=== PATIENT | female | born 1950 | race Caucasian/White ===

== ENCOUNTER 2017-04-14 12:48 | Emergency (ER) | payer MEDICARE, MEDICAID, SELFPAY ==
[2017-04-14 13:27] VITALS: BP 125/51; PULSE 70; RESP 20; TEMP 37.3; O2SAT 95; BMI 37.7
[2017-04-14 13:43] LABS: UTC Influenza A Antigen Negative (Negative); UTC Influenza B Antigen Negative (Negative)
[2017-04-14 13:53] LABS: Apearance,Urine Cloudy (Clear); Bilirubin,Urine Negative (Negative); Blood, Urine Negative (Negative); Color,Urine Yellow (Yellow); Glucose,Urine (UA) Negative (Negative); Ketones,Urine Negative (Negative); PH,Urine 7.5 (5.0-8.5); Protein,Urine Negative (Negative); Specific Gravity, Urine 1.015 (1.005-1.030); UTC Leukocyte Esterase,Urine Negative (Negative); UTC Nitrate,Urine Positive (Negative); Urobilinogen,Urine 0.2 EU/dl (0.2)
--- NOTE | 2017-04-14 13:55 | HMH.EDUTC ---
[facility] – [place] Disposition Clinical Impression: UTI (urinary tract infection) Qualifiers: Urinary tract infection type: site unspecified Hematuria presence: without hematuria Qualified Code(s): N39.0 - Urinary tract infection, site not specified Disposition: Home, Self-Care Condition on Discharge: Good Instructions: Urinary Tract Infection, DI for Urinary Tract Infection (UTI) Additional Instructions: *Increase fluids. Water not Soda or Tea *Start antibiotic immediately and be sure to take as ordered for the FULL length of time although you should start to see improvement over the next 48 hours *Pyridium as needed Remember this medication will turn your urine [place]. This is normal but it will stain what ever it gets on *You should not use Pyridium for more than 48 hours. If so , follow up with your primary physician to review urine culture and ensure that antibiotic is adequate for infection *Be SURE to follow up anytime for new or worsening symptoms. AND in 48 hours for urine culture results AND in 10-14 days to repeat UA to ensure infection is resolved and blood no longer present *Be sure to let your PCP know that we sent urine cultures from the [facility] so they can follow up to ensure that you area the on the correct antibiotic Follow up with family doctor if symptoms persist or worsen Prescriptions: Nitrofurantoin Monohyd/M-Cryst [Macrobid 100 mg Capsule] 100 mg PO Q12H #14 capsule Phenazopyridine HCl [Pyridium 200mg Tablet] 200 mg PO TID #6 tablet Referrals: Bassam Alvarenga MD [Primary Care Provider] - Time of Disposition: 14:16 Medical Decision Making Vital Signs: 04/14/17 13:27 Temperature 99.1 F Temperature Source Temporal Artery Scan Pulse Rate [Right] 70 Respiratory Rate 20 Blood Pressure [Right Arm] 125/51 Blood Pressure Mean [Right Arm] 75 Blood Pressure Source [Right Arm] Automatic Cuff Blood Pressure Position [Right Arm] Sitting 02 Sat by Pulse Oximetry 95 Oxygen Delivery Method Room Air - Lab Data Lab Results 04/14/17 13:30: Influenza Type A Ag Negative, Influenza Type B Ag Negative 04/14/17 13:42: Urine Color Yellow, Urine Appearance Cloudy, Urine pH 7.5, Ur Specific [place] 1.015, Urine Protein Negative, Urine Glucose (UA) Negative, Urine Ketones Negative, Urine Blood Negative, Urine Nitrate Positive A, Urine Bilirubin Negative, Urine Urobilinogen 0.2, Ur Leukocyte Esterase Negative - Pascual Inquiry Pt receiving controlled substance: No Pascual was queried for this patient: No [facility] [place] HPI - General Stated complaint: headache cough achey Mode of Arrival: Ambulatory Source of Information: Patient Limitations: No Limitations Description of Symptoms (Recalled from Triage Doc. by RN): COUGH, HEADACHE, BACK PAIN HEENT Symptoms (Recalled from RN notes): Yes Resp Symptoms (Recalled from RN notes): No Skin Symptoms (Recalled from RN notes): No MS Symptoms (Recalled from RN notes): No Functional Status (Recalled from RN notes): N - History of Present Illness Provider Complaint: Patient state that she has been coughing feeling achy all over, pain and burning with urination and lower back at times State that she thinks she may have a UTI state that urine has strong odor to it. States that she recieves blood products alot and was worried that she may have been exposed to the flu also - Related Data Home Medications Medication Instructions Recorded Confirmed Atenolol [Atenolol 25mg Tab] 25 mg PO DAILY 04/14/17 04/14/17 Gabapentin [Gabapentin 400mg Cap] 400 mg PO TID 04/14/17 04/14/17 Omeprazole [Omeprazole 20mg 20 mg PO DAILY 04/14/17 04/14/17 Capsule] Previous Rx's Medication Instructions Recorded Nitrofurantoin Monohyd/M-Cryst 100 mg PO Q12H #14 cap 04/14/17 [Macrobid 100 mg Capsule] Phenazopyridine HCl [Pyridium 200 mg PO TID #6 tab 04/14/17 200mg Tablet] Allergies Allergy/AdvReac Type Severity Reaction Status Date / Time maltose [From [employer] [facility]] AdvReac Mild NA-AZALIA
--- NOTE | 2017-04-14 14:02 | ED_ITS ---
[facility] – [place] Disposition Clinical Impression: UTI (urinary tract infection) Qualifiers: Urinary tract infection type: site unspecified Hematuria presence: without hematuria Qualified Code(s): N39.0 - Urinary tract infection, site not specified Disposition: Home, Self-Care Condition on Discharge: Good Instructions: Urinary Tract Infection, DI for Urinary Tract Infection (UTI) Additional Instructions: *Increase fluids. Water not Soda or Tea *Start antibiotic immediately and be sure to take as ordered for the FULL length of time although you should start to see improvement over the next 48 hours *Pyridium as needed Remember this medication will turn your urine [place]. This is normal but it will stain what ever it gets on *You should not use Pyridium for more than 48 hours. If so , follow up with your primary physician to review urine culture and ensure that antibiotic is adequate for infection *Be SURE to follow up anytime for new or worsening symptoms. AND in 48 hours for urine culture results AND in 10-14 days to repeat UA to ensure infection is resolved and blood no longer present *Be sure to let your PCP know that we sent urine cultures from the [facility] so they can follow up to ensure that you area the on the correct antibiotic Follow up with family doctor if symptoms persist or worsen Prescriptions: Nitrofurantoin Monohyd/M-Cryst [Macrobid 100 mg Capsule] 100 mg PO Q12H #14 capsule Phenazopyridine HCl [Pyridium 200mg Tablet] 200 mg PO TID #6 tablet Referrals: Bassam Alvarenga MD [Primary Care Provider] - Time of Disposition: 14:16 Medical Decision Making Vital Signs: 04/14/17 13:27 Temperature 99.1 F Temperature Source Temporal Artery Scan Pulse Rate [Right] 70 Respiratory Rate 20 Blood Pressure [Right Arm] 125/51 Blood Pressure Mean [Right Arm] 75 Blood Pressure Source [Right Arm] Automatic Cuff Blood Pressure Position [Right Arm] Sitting 02 Sat by Pulse Oximetry 95 Oxygen Delivery Method Room Air - Lab Data Lab Results 04/14/17 13:30: Influenza Type A Ag Negative, Influenza Type B Ag Negative 04/14/17 13:42: Urine Color Yellow, Urine Appearance Cloudy, Urine pH 7.5, Ur Specific [place] 1.015, Urine Protein Negative, Urine Glucose (UA) Negative, Urine Ketones Negative, Urine Blood Negative, Urine Nitrate Positive A, Urine Bilirubin Negative, Urine Urobilinogen 0.2, Ur Leukocyte Esterase Negative - Pascual Inquiry Pt receiving controlled substance: No Pascual was queried for this patient: No [facility] [place] HPI - General Stated complaint: headache cough achey Mode of Arrival: Ambulatory Source of Information: Patient Limitations: No Limitations Description of Symptoms (Recalled from Triage Doc. by RN): COUGH, HEADACHE, BACK PAIN HEENT Symptoms (Recalled from RN notes): Yes Resp Symptoms (Recalled from RN notes): No Skin Symptoms (Recalled from RN notes): No MS Symptoms (Recalled from RN notes): No Functional Status (Recalled from RN notes): N - History of Present Illness Provider Complaint: Patient state that she has been coughing feeling achy all over, pain and burning with urination and lower back at times State that she thinks she may have a UTI state that urine has strong odor to it. States that she recieves blood products alot and was worried that she may have been exposed to the flu also - Related Data Home Medications Medication Instructions Recorded Confirmed Atenolol [Atenolol 25mg Tab] 25 mg PO DAILY 04/14/17 04/14/17
== END 2017-04-14 14:27 | disposition home or self-care (01) ==
PROVIDERS: Emergency Provider Nurse Practitioner; Family Provider Family Medicine; PCP Family Medicine
DX: N39.0 Urinary tract infection, site not specified (principal); Z79.899 Other long term (current) drug therapy
CPT/HCPCS: 81003; 87804; 99202

== ENCOUNTER 2017-05-01 19:46 | Emergency (ER) | payer MEDICARE, MEDICAID, SELFPAY ==
[2017-05-01 19:56] VITALS: BP 156/84; PULSE 70; RESP 14; TEMP 36.8; O2SAT 96; BMI 38.0
--- NOTE | 2017-05-01 20:19 | HMH.EDEYEP ---
ED Disposition Clinical Impression: Change in vision Disposition: Home, Self-Care Condition on Discharge: Good Instructions: Eye Contusion Referrals: Bassam Alvarenga MD [Primary Care Provider] - - Critical Care Critical Care Time: No Attestation: On 05/01/17, the high probability of a clinically significant, sudden or life threatening deterioration of the following system(s) required my full and direct attention, intervention and personal management. The time I documented below is in addition to time spent performing reported procedures but includes the following listed in this critical care notation. Medical Decision Making - Medical Records Medical records reviewed: Yes: I reviewed the patient's medical records. Vital Signs: 05/01/17 19:56 Temperature 98.2 F Temperature Source Oral Pulse Rate [Right Brachial] 70 Respiratory Rate 14 Blood Pressure [Right Arm] 156/84 Blood Pressure Mean [Right Arm] 108 Blood Pressure Source [Right Arm] Automatic Cuff 02 Sat by Pulse Oximetry 96 Oxygen Delivery Method Room Air - Physician Consults Physician Consulted: corby Reason -: Pt condition - Pascual Inquiry Pt receiving controlled substance: No Eye Problem HPI - General Chief complaint: Eye Problems Stated complaint: F/B IN RIGHT EYE Time Seen by Provider: 05/01/17 20:19 Mode of Arrival: Ambulatory Source of Information: Patient, Medical Record Limitations: No Limitations Description of Symptoms (Recalled from ER Triage Doc. by RN): PT STATES SHE FEELS LIKE THERE IS SOMETHING IN HER RIGHT EYE, STARTED THIS MORNING. SHE HAD AN EYE EXAM YESTERDAY, AND EVERYTHING WAS FINE. PT DENIES ANY TRAUMA, SHE STATES SHE IS SEEING BLACK FLOATERS - History of Present Illness HPI Narrative: pt with nl eye exam and now has no pain or visual loss but has sense of seeing thread - MD chief complaint: vision change Onset (ago): day(s) Onset description: sudden Duration: constant Location: right eye Place: home Severity: moderate - Related Data Home Medications Medication Instructions Recorded Confirmed Atenolol [Atenolol 25mg Tab] 25 mg PO DAILY 04/14/17 05/01/17 Gabapentin [Gabapentin 400mg Cap] 400 mg PO TID 04/14/17 05/01/17 Omeprazole [Omeprazole 20mg 20 mg PO DAILY 04/14/17 05/01/17 Capsule] Allergies Allergy/AdvReac Type Severity Reaction Status Date / Time maltose [From [employer]] AdvReac Mild NA-NAUSEA/V Verified 05/01/17 20:10 OMITING Rho(D) immune globulin AdvReac Mild NA-NAUSEA/V Verified 05/01/17 20:10 [From [employer]] OMITING Sulfa (Sulfonamide AdvReac Mild NA-NAUSEA Verified 05/01/17 20:10 Antibiotics) H History I have reviewed the patient's past medical history: Yes - *Social History Smoking Status: Never smoker Alcohol Intake: never - Psychiatric History Expresses thoughts of harming self/others: None Suicide Plan Description: No Plan ROS Obtained: Yes All systems reviewed & no additional complaints - Constitutional Constitutional: Denies fever(s) - Eyes Eyes: Reports as per HPI, Reports change in vision, Reports floaters - ENT Ears, Nose, Mouth, and Throat: Reports epistaxis - Cardiovascular Cardiovascular: Reports chest pain at rest - Respiratory Respiratory: Yes cough - Musculoskeletal Musculoskeletal: Reports joint pain - Integumentary/Breasts Skin/Breast: Denies rash - Neurologic Neurologic: Denies seizure-like activity Physical Exam - General General appearance: alert, in no apparent distress - Head Head exam: atraumatic - Eye Eye exam: Present: PERRL, EOMI, other (neg stain ) - ENT ENT exam: Present: mucous membranes moist - Neck Neck exam: Present: trachea midline - Respiratory Respiratory exam: Absent: respiratory distress - Cardiovascular Cardiovascular exam: Present: regular rate - Abdominal Exam Abdominal exam: Present: soft - Neurological Exam Neurological exam: Present: henok
--- NOTE | 2017-05-01 20:22 | ED_ITS ---
ED Disposition Clinical Impression: Change in vision Disposition: Home, Self-Care Condition on Discharge: Good Instructions: Eye Contusion Referrals: Bassam Alvarenga MD [Primary Care Provider] - - Critical Care Critical Care Time: No Attestation: On 05/01/17, the high probability of a clinically significant, sudden or life threatening deterioration of the following system(s) required my full and direct attention, intervention and personal management. The time I documented below is in addition to time spent performing reported procedures but includes the following listed in this critical care notation. Medical Decision Making - Medical Records Medical records reviewed: Yes: I reviewed the patient's medical records. Vital Signs: 05/01/17 19:56 Temperature 98.2 F Temperature Source Oral Pulse Rate [Right Brachial] 70 Respiratory Rate 14 Blood Pressure [Right Arm] 156/84 Blood Pressure Mean [Right Arm] 108 Blood Pressure Source [Right Arm] Automatic Cuff 02 Sat by Pulse Oximetry 96 Oxygen Delivery Method Room Air - Physician Consults Physician Consulted: corby Reason -: Pt condition - Pascual Inquiry Pt receiving controlled substance: No Eye Problem HPI - General Chief complaint: Eye Problems Stated complaint: F/B IN RIGHT EYE Time Seen by Provider: 05/01/17 20:19 Mode of Arrival: Ambulatory Source of Information: Patient, Medical Record Limitations: No Limitations Description of Symptoms (Recalled from ER Triage Doc. by RN): PT STATES SHE FEELS LIKE THERE IS SOMETHING IN HER RIGHT EYE, STARTED THIS MORNING. SHE HAD AN EYE EXAM YESTERDAY, AND EVERYTHING WAS FINE. PT DENIES ANY TRAUMA, SHE STATES SHE IS SEEING BLACK FLOATERS - History of Present Illness HPI Narrative: pt with nl eye exam and now has no pain or visual loss but has sense of seeing thread - MD chief complaint: vision change Onset (ago): day(s) Onset description: sudden Duration: constant Location: right eye Place: home Severity: moderate - Related Data Home Medications Medication Instructions Recorded Confirmed Atenolol [Atenolol 25mg Tab] 25 mg PO DAILY 04/14/17 05/01/17 Gabapentin [Gabapentin 400mg Cap] 400 mg PO TID 04/14/17 05/01/17 Omeprazole [Omeprazole 20mg 20 mg PO DAILY 04/14/17 05/01/17 Capsule] Allergies Allergy/AdvReac Type Severity Reaction Status Date / Time maltose [From [employer] [facility]] AdvReac Mild NA-NAUSEA/V Verified 05/01/17 20:10 OMITING Rho(D) immune globulin AdvReac Mild NA-NAUSEA/V Verified 05/01/17 20:10 [From [employer]] OMITING Sulfa (Sulfonamide AdvReac Mild NA-NAUSEA Verified 05/01/17 20:10 Antibiotics) [facility] History I have reviewed the patient's past medical history: Yes - *Social History Smoking Status: Never smoker Alcohol Intake: never - Psychiatric History Expresses thoughts of harming self/others: None Suicide Plan Description: No Plan ROS Obtained: Yes All systems reviewed & no additional complaints - Constitutional Constitutional: Denies fever(s) - Eyes Eyes: Reports as per HPI, Reports change in vision, Reports floaters - ENT Ears, Nose, Mouth, and Throat: Reports epistaxis - Cardiovascular Cardiovascular: Reports chest pain at rest - Respiratory Respiratory: Yes
--- NOTE | 2017-05-01 20:29 | PC.NURSE ---
VISION 20/200 IN RIGHT EYE, 20/50 IN LEFT AND 20/40 IN BOTH
== END 2017-05-01 20:36 | disposition home or self-care (01) ==
PROVIDERS: Emergency Provider Emergency Medicine; Family Provider Family Medicine; PCP Family Medicine
DX: H53.141 Visual discomfort, right eye (principal); Z79.899 Other long term (current) drug therapy; Z88.2 Allergy status to sulfonamides
CPT/HCPCS: 99282

== ENCOUNTER 2017-06-15 12:34 | Emergency (ER) | payer MEDICARE, MEDICAID, SELFPAY ==
[2017-06-15 13:29] VITALS: BP 123/61; PULSE 72; RESP 20; TEMP 37.3; O2SAT 96; BMI 37.7
--- NOTE | 2017-06-15 14:31 | XR_ITS ---
XR knee standing BI Ordering Physician: Marguerite Dorsey Patient Age: 67 years: Female HISTORY: ITS.REASON: becki knee pain TECHNIQUE: Bilateral standing 3 view right and left knee COMPARISON:. 11/21/2014. Right & left knee radiograph === LEFT KNEE 3 VIEWS WEIGHTBEARING . Slight narrowing medial compartment more so than lateral compartment. Minor sharpening & scant early marginal osteophyte formation at the knee. No joint effusion. ========= RIGHT KNEE 3 VIEW WEIGHTBEARING: Borderline/scant narrowing of the medial compartment more so the lateral compartment.. Similar appearance versus 2011 this regard. Also Trace tricompartmental marginal osteophytes. No joint effusion. Scattered small ovoid osseous densities posterior to the joint. Small osseous densities posteriorly may reflect small synovial osteochondroma formation and possibly some hypertrophic features posteriorly which have progressed since previous comparison study 2010. But less likely loose body posteriorly. 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 No prominent findings either knee... No joint effusion. No fracture. Right knee. 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 Less likely loose body. Slight progression these features since 2010
--- NOTE | 2017-06-15 14:31 | HMH.EDUTC ---
[facility] – [place] Disposition Clinical Impression: Maxillary sinusitis, acute Qualifiers: Recurrence: non-recurrent Qualified Code(s): J01.00 - Acute maxillary sinusitis, unspecified Disposition: Home, Self-Care Condition on Discharge: Good Instructions: Sinusitis Additional Instructions: Tylenol or ibuprofen as needed Follow-up with primary care for surgery clearance If symptoms worsen or do not improve return or be seen in the ER Follow-up with Orth regarding knee pain Referrals: Aramis Pelaez MD [Staff Physician] - Medical Decision Making Vital Signs: 06/15/17 13:29 Temperature 99.2 F Temperature Source Temporal Artery Scan Pulse Rate [Brachial] 72 Respiratory Rate 20 Blood Pressure [Right Arm] 123/61 Blood Pressure Mean [Right Arm] 81 Blood Pressure Source [Right Arm] Automatic Cuff Blood Pressure Position [Right Arm] Sitting 02 Sat by Pulse Oximetry 96 Orders (Tests/Meds): ORDERS Category Date Time Status Knee XR bilateral standing [XR knee standing BI] Stat Exams 06/15/17 14:31 Ordered - Pascual Inquiry Pt receiving controlled substance: No [facility] [place] HPI - General Chief complaint: Headache Stated complaint: headache Time Seen by Provider: 06/15/17 14:32 Mode of Arrival: Ambulatory Source of Information: Patient Limitations: No Limitations Description of Symptoms (Recalled from Triage Doc. by RN): H/A, AND BILATERAL KNEE PAIN HEENT Symptoms (Recalled from RN notes): No Resp Symptoms (Recalled from RN notes): No Skin Symptoms (Recalled from RN notes): No MS Symptoms (Recalled from RN notes): Yes Functional Status (Recalled from RN notes): NA - History of Present Illness Provider Complaint: 67-year-old female presents today for multiple complaints. Patient is complaining of a headache with sinus congestion and pressure. Also reports bilateral knee pain that has been going on for years she states sometimes she has trouble walking due to the pain. Patient reports a history of fibromyalgia. Patient also was questioned whether she did have a surgery clearance for surgery tomorrow when her eyes. - Related Data Home Medications Medication Instructions Recorded Confirmed Atenolol [Atenolol 25mg Tab] 25 mg PO DAILY 04/14/17 05/01/17 Gabapentin [Gabapentin 400mg Cap] 400 mg PO TID 04/14/17 05/01/17 Omeprazole [Omeprazole 20mg 20 mg PO DAILY 04/14/17 05/01/17 Capsule] Duloxetine HCl [Cymbalta 30mg 30 mg PO DAILY 06/15/17 06/15/17 capsule] Lisinopril [Zestril 10mg Tab] 10 mg PO DAILY 06/15/17 06/15/17 Allergies Allergy/AdvReac Type Severity Reaction Status Date / Time maltose [From [employer]] AdvReac Mild NA-NAUSEA/V Verified 05/01/17 20:10 OMITING Rho(D) immune globulin AdvReac Mild NA-NAUSEA/V Verified 05/01/17 20:10 [From [employer]] OMITING Sulfa (Sulfonamide AdvReac Mild NA-NAUSEA Verified 05/01/17 20:10 Antibiotics) - Worker's Comp Is this a Worker's Comp case?: No [facility] History I have reviewed the patient's past medical history: Yes - Social History Smoking Status: Never smoker Alcohol Intake: never - Psychiatric History Expresses thoughts of harming self/others: None Suicide Plan Description: No Plan ROS Obtained: Yes All systems reviewed & no additional complaints - Constitutional Constitutional: Reports system reviewed and no additional complaints, except as docu, Denies fever(s), Reports headache(s) - Eyes Eyes: Reports system reviewed and no additional complaints, except as docu - ENT Ears, Nose, Mouth, and Throat: Reports system reviewed and no additional complaints, except as docu, Reports headache(s), Reports nasal congestion, Reports nasal discharge, Reports nose pain - Cardiovascular Cardiovascular: Reports system reviewed and no additional complaints, except as docu - Gastrointestinal Gastrointestingal: Reports: system reviewed and no additional complaints, except as docu - Musculoskeletal Musculoskeletal: Reports syst
--- NOTE | 2017-06-15 14:38 | ED_ITS ---
[facility] – [place] Disposition Clinical Impression: Maxillary sinusitis, acute Qualifiers: Recurrence: non-recurrent Qualified Code(s): J01.00 - Acute maxillary sinusitis , unspecified Disposition: Home, Self-Care Condition on Discharge: Good Instructions: Sinusitis Additional Instructions: Tylenol or ibuprofen as needed Follow-up with primary care for surgery clearance If symptoms worsen or do not improve return or be seen in the ER Follow-up with Orth regarding knee pain Referrals: Aramis Pelaez MD [Staff Physician] - Medical Decision Making Vital Signs: 06/15/17 13:29 Temperature 99.2 F Temperature Source Temporal Artery Scan Pulse Rate [Brachial] 72 Respiratory Rate 20 Blood Pressure [Right Arm] 123/61 Blood Pressure Mean [Right Arm] 81 Blood Pressure Source [Right Arm] Automatic Cuff Blood Pressure Position [Right Arm] Sitting 02 Sat by Pulse Oximetry 96 Orders (Tests/Meds): ORDERS Category Date Time Status Knee XR bilateral standing [XR knee standing BI] Stat Exams 06/15/17 14:31 Ordered - Pascual Inquiry Pt receiving controlled substance: No [facility] [place] HPI - General Chief complaint: Headache Stated complaint: headache Time Seen by Provider: 06/15/17 14:32 Mode of Arrival: Ambulatory Source of Information: Patient Limitations: No Limitations Description of Symptoms (Recalled from Triage Doc. by RN): H/A, AND BILATERAL KNEE PAIN HEENT Symptoms (Recalled from RN notes): No Resp Symptoms (Recalled from RN notes): No Skin Symptoms (Recalled from RN notes): No MS Symptoms (Recalled from RN notes): Yes Functional Status (Recalled from RN notes): NA - History of Present Illness Provider Complaint: 67-year-old female presents today for multiple complaints. Patient is complaining of a headache with sinus congestion and pressure. Also reports bilateral knee pain that has been going on for years she states sometimes she has trouble walking due to the pain. Patient reports a history of fibromyalgia. Patient also was questioned whether she did have a surgery clearance for surgery tomorrow when her eyes. - Related Data Home Medications Medication Instructions Recorded Confirmed Atenolol [Atenolol 25mg Tab] 25 mg PO DAILY 04/14/17 05/01/17 Gabapentin [Gabapentin 400mg Cap] 400 mg PO TID 04/14/17 05/01/17 Omeprazole [Omeprazole 20mg 20 mg PO DAILY 04/14/17 05/01/17 Capsule] Duloxetine HCl [Cymbalta 30mg 30 mg PO DAILY 06/15/17 06/15/17 capsule] Lisinopril [Zestril 10mg Tab] 10 mg PO DAILY 06/15/17 06/15/17 Allergies Allergy/AdvReac Type Severity Reaction Status Date / Time maltose [From [employer]] AdvReac Mild NA-NAUSEA/V Verified 05/01/17 20:10 OMITING Rho(D) immune globulin AdvReac Mild NA-NAUSEA/V Verified 05/01/17 20:10 [From [employer]] OMITING Sulfa (Sulfonamide AdvReac Mild NA-NAUSEA Verified 05/01/17 20:10 Antibiotics) - Worker's Comp Is this a Worker's Comp case?: No H History I have reviewed the patient's past medical history: Yes - Social History Smoking Status: Never smoker Alcohol Intake: never - Psychiatric History Expresses thoughts of harming self/others: None Suicide Plan Description: No Plan ROS Obtained: Yes All systems reviewed & no additional complaints - C
[2017-06-15 14:58] LABS: Apearance,Urine Clear (Clear); Color,Urine Yellow (Yellow); PH,Urine 5.5 (5.0-8.5); Specific Gravity, Urine 1.025 (1.005-1.030)
[2017-06-15 15:00] LABS: Blood, Urine Trace (Negative); Glucose,Urine (UA) Negative (Negative); Ketones,Urine Negative (Negative); Protein,Urine Trace (Negative)
[2017-06-15 15:01] LABS: Bilirubin,Urine 1+ (Negative); UTC Leukocyte Esterase,Urine Negative (Negative); UTC Nitrate,Urine Negative (Negative); Urobilinogen,Urine 1 EU/dl (0.2)
[2017-06-15 15:12] VITALS: BP 123/61; PULSE 72; RESP 20; TEMP 37.3; O2SAT 96
== END 2017-06-15 15:19 | disposition home or self-care (01) ==
PROVIDERS: Emergency Provider Nurse Practitioner Family
DX: J01.00 Acute maxillary sinusitis, unspecified (principal)
CPT/HCPCS: G0463; 73565; 81003; 99203

== ENCOUNTER → 2018-05-27 08:38 | Outpatient (CLI) | payer MEDICARE, MEDICAID, SELFPAY | PROVIDERS: PCP Family Medicine; Visit Provider Nurse Practitioner Family | DX: I20.8 Other forms of angina pectoris (principal) | CPT/HCPCS: 93017 ==